=== PATIENT | female | born 1980 | race Caucasian/White ===

== ENCOUNTER 2023-02-17 16:32 | Emergency (ER) | payer OTHER ==
[~2023-02-17] VITALS: Ht 165.1 cm; Wt 97.5 kg
[~2023-02-17 16:32] MED LIST: ACET325; ACET500; ALPR1 PO; BCPs; BENTYL20 MG PO; BENZ100A PO; Bactrim Ds Tab1 EACH PO; CEPH250A; CEPH500 PO; CLIN150 PO; CYCL10 PO; Cortisporin Ey7.5 ML BOTHEYES; DIPH25; DIPH50; DOXA1 PO; DOXY100 PO; ESCI20; ESCI20 PO; FAMO20 PO; FERR325 PO; FLUC150A PO; FLUO10; FLUO20; GUAI600ER PO; GUAI600T33 PO; HYDACE5 PO; HYOS.125 SL; IBUP100S PO; IBUP200; IBUP600 PO; IBUP800 PO; KETO10 PO; LIDO2L MT; LISI20 PO; LISI5 PO; LORA2 PO; MECL25 PO; METF500; METF500 PO; METF500C PO; METR500 PO; MULVITMINE; Macrobid 100 M100 MG PO; Mucinex600 MG PO; NAPR500 PO; NITR100CA PO; Naprosyn500 MG PO; OMEP20ER PO; PARO25; PRED10 PO; PRED20 PO; PROACE100 PO; PROM25 PO; PROM25S PR; Prednisone20 MG PO; Pyridium100 MG PO; RANI150 PO; RXLORA1 PO; RXNAPNA550 PO; RXPROACE PO; RXPROM25 PO; RXSULTRIDS PO; RXTRAM50 PO; SIME80CH PO; SULTRIDS PO; SULTRIEL PO; TERB24TC TOP; TRAM50 PO; Vibramycin100 MG PO; Zofran Odt4 MG SL; Zofran Odt8 MG SL; [UNRECOGNIZED DRUG - OTHER] PO; [UNRECOGNIZED DRUG - REMARK]
[2023-02-17 16:46] VITALS: BP 142/86
[2023-02-17] MEDS ORDERED: CYCL10 PO (17:58)
[2023-02-17] MEDS ORDERED: ATORVASTATIN CA20 MG PO (17:58)
[2023-02-17] MEDS ORDERED: TRAM50 PO (17:58)
[2023-02-17] MEDS ORDERED: FLUOXETINE HCL20 M2 PO (18:07)
[2023-02-17] MEDS ORDERED: GLIP5 PO (18:08)
[2023-02-17] MEDS ORDERED: ONDA4ODT MM (18:37)
== END 2023-02-17 19:16 | disposition home or self-care (01) ==
LOC: ER 16:32
DX: K52.9 Noninfective gastroenteritis and colitis, unspecified (principal); K29.70 Gastritis, unspecified, without bleeding; I10 Essential (primary) hypertension; E11.9 Type 2 diabetes mellitus without complications; F32.A Depression, unspecified; Z88.0 Allergy status to penicillin; Z88.1 Allergy status to other antibiotic agents; Z88.5 Allergy status to narcotic agent; Z88.8 Allergy status to other drugs, medicaments and biological substances; Z79.84 Long term (current) use of oral hypoglycemic drugs; Z79.899 Other long term (current) drug therapy
CPT/HCPCS: 96361; 96374; 99283-25; A9270; J2405; J7030

== ENCOUNTER → 2023-04-05 | Outpatient (CLI) | payer OTHER ==
[~2023-04-05] MED LIST changes: +ATORVASTATIN CA20 MG PO; +FLUOXETINE HCL20 M2 PO; +GLIP5 PO; +ONDA4ODT MM
[2023-04-06 13:00] LABS: Candida species (DNA Probe) Negative (NEGATIVE); G. vaginalis (DNA Probe) Positive (NEGATIVE); T. vaginalis (DNA Probe) Negative (NEGATIVE)
== END ==
LOC: LAB 15:02 → LAB SHORT 15:02
PROVIDERS: Nurse Practitioner Family
DX: N94.9 Unspecified condition associated with female genital organs and menstrual cycle (principal)
CPT/HCPCS: 87480; 87510; 87660

== ENCOUNTER → 2023-06-27 | Outpatient (CLI) | payer OTHER | END | disposition home or self-care (01) | LOC: LAB 16:57 → LAB SHORT 16:57 | DX: B37.31 Acute candidiasis of vulva and vagina (principal) ==

== ENCOUNTER → 2023-12-10 | Outpatient (CLI) | payer OTHER ==
[~2023-12-10] MED LIST changes: +Aspir 8181 MG PO; +STEGLATRO5 MG PO
[2023-12-10 14:26] LABS: BASOPHILS PERCENT AUTO 1 % (0-2); EOSINOPHILS ABSOLUTE AUTO 0.23 K/mm3 (0.00-0.68); EOSINOPHILS PERCENT AUTO 2 % (0-6); Hematocrit 41.3 % (33.0-51.0); Hemoglobin 13.7 g/dL (11.5-16.0); IMMATURE GRAN ABSOLUTE AUTO 0.04 K/mm3 (0.00-0.10); IMMATURE GRAN PERCENT AUTO 0 % (0-1); LYMPHOCYTES ABSOLUTE AUTO 3.75 K/mm3 (0.84-5.20); LYMPHOCYTES PERCENT AUTO 37 % (21-46); MONOCYTES ABSOLUTE AUTO 0.88 K/mm3 (0.16-1.47); MONOCYTES PERCENT AUTO 9 % (4-13); Mean Corpuscular HGB 29.9 pg (26.0-34.0); Mean Corpuscular HGB Conc 33.2 g/dL (31.5-36.5); Mean Corpuscular Volume 90 fL (80-100); Mean Platelet Volume 9.8 fL (9.1-12.4); NEUTROPHILS ABSOLUTE AUTO 5.07 K/mm3 (1.96-9.15); NEUTROPHILS PERCENT AUTO 50 % (41-73); Platelet Count 372 K/mm3 (150-400); RDW Coefficient Variation 14.3 % (11.7-14.2); RDW Standard Deviation 47.2 fL (35.1-46.3); Red Blood Cell Count 4.58 M/mm3 (3.80-5.20); White Blood Cell Count 10.07 K/mm3 (4.00-11.30)
[2023-12-10 14:58] LABS: Percent Saturation 13.1 % (15.0-50.0)
== END | disposition home or self-care (01) ==
LOC: LAB 13:41 → LAB SHORT 13:41
PROVIDERS: Registered Nurse Oncology
DX: D50.9 Iron deficiency anemia, unspecified (principal)
CPT/HCPCS: 82728; 83540; 83550; 85025

== ENCOUNTER → 2024-05-02 | Outpatient (CLI) | payer OTHER ==
[2024-05-02 14:24] LABS: BASOPHILS ABSOLUTE AUTO 0.11 K/mm3 (0.00-0.23); BASOPHILS PERCENT AUTO 1 % (0-2); EOSINOPHILS ABSOLUTE AUTO 0.51 K/mm3 (0.00-0.68); EOSINOPHILS PERCENT AUTO 4 % (0-6); Hematocrit 46.3 % (33.0-51.0); Hemoglobin 15.5 g/dL (11.5-16.0); IMMATURE GRAN ABSOLUTE AUTO 0.11 K/mm3 (0.00-0.10); IMMATURE GRAN PERCENT AUTO 1 % (0-1); LYMPHOCYTES ABSOLUTE AUTO 4.22 K/mm3 (0.84-5.20); LYMPHOCYTES PERCENT AUTO 29 % (21-46); MONOCYTES ABSOLUTE AUTO 0.95 K/mm3 (0.16-1.47); MONOCYTES PERCENT AUTO 7 % (4-13); Mean Corpuscular HGB 31.1 pg (26.0-34.0); Mean Corpuscular HGB Conc 33.5 g/dL (31.5-36.5); Mean Corpuscular Volume 93 fL (80-100); Mean Platelet Volume 9.8 fL (9.1-12.4); NEUTROPHILS ABSOLUTE AUTO 8.44 K/mm3 (1.96-9.15); NEUTROPHILS PERCENT AUTO 59 % (41-73); Platelet Count 384 K/mm3 (150-400); RDW Coefficient Variation 14.1 % (11.7-14.2); RDW Standard Deviation 47.5 fL (35.1-46.3); Red Blood Cell Count 4.99 M/mm3 (3.80-5.20); White Blood Cell Count 14.34 K/mm3 (4.00-11.30)
== END ==
LOC: LAB 12:30 → LAB SHORT 12:30
PROVIDERS: Registered Nurse Oncology
DX: D50.9 Iron deficiency anemia, unspecified (principal)
CPT/HCPCS: 82728; 83540; 83550; 85025

== ENCOUNTER → 2024-11-03 | Outpatient (CLI) | payer OTHER ==
[2024-11-03 16:13] LABS: Bacterial Vaginosis PCR Negative (NEGATIVE); Candida Group, PCR DETECTED (NOT DETECT); Candida glabrata-krusei, PCR DETECTED (NOT DETECT)
== END ==
LOC: LAB SHORT 13:36 → LAB 13:36
PROVIDERS: Obstetrics & Gynecology
DX: N89.8 Other specified noninflammatory disorders of vagina (principal)
CPT/HCPCS: 81515